=== PATIENT | male | born 1990 | race Caucasian/White ===

== ENCOUNTER 2022-06-21 15:46 | Observation (INO) | payer OTHER ==
[~2022-06-21] VITALS: Ht 180.3 cm; Wt 107.0 kg
[2022-06-21] MEDS ORDERED: ONDANSETRON HCL INJ 2MG/ML 2ML 2 MG/ML VIAL IV STA ×2 (16:06→19:49)
[2022-06-21] MEDS ORDERED: Morphine 4mg INJECTION 4 MG/ML INJ IV ONE ×2 (16:15→20:00)
[2022-06-21 16:23] LABS: BASOPHILS # (AUTO) 0.1 (0.0-0.1); BASOPHILS % 0.3 % (0.0-1.0); EOSINOPHILS # (AUTO) 0.2 (0.0-0.4); HEMATOCRIT 45.7 % (38.2-49.6); HEMOGLOBIN 15.2 g/dL (14.0-18.0); LYMPHOCYTES # (AUTO) 1.4 (1.0-3.2); LYMPHOCYTES % 9.1 % (18.0-39.1); MEAN CORPUSCULAR HEMOGLOBIN 31.5 pg (28-32); MEAN CORPUSCULAR HGB CONC 33.3 g/dL (31-35); MEAN CORPUSCULAR VOLUME 94.8 fL (81-99); MONOCYTES # (AUTO) 1.3 (0.2-0.8); MONOCYTES % 8.1 % (4.4-11.3); NEUTROPHILS # (AUTO) 12.7 (2.1-6.9); NEUTROPHILS % 81.2 % (38.7-80.0); PLATELET COUNT 309 x10e3/uL (140-360); RED BLOOD COUNT 4.82 x10e6/uL (4.3-5.7); RED CELL DISTRIBUTION WIDTH 12.2 % (11.7-14.4)
[2022-06-21 16:39] LABS: CLARITY,URINE SL CLOUDY (CLEAR); COLOR,URINE YELLOW (YELLOW); KETONES,URINE NEGATIVE (NEGATIVE); LEUKOCYTE ESTERASE ,URINE NEGATIVE (NEGATIVE); NITRITE,URINE NEGATIVE (NEGATIVE); PROTEIN,URINE DIPSTICK NEGATIVE (NEGATIVE); URINE UROBILINOGEN 0.2 mg/dL (0.2 - 1)
[2022-06-21 16:42] LABS: BACTERIA,URINE FEW /HPF; EPITHELIAL CELLS,URINE FEW /LPF; MUCUS,URINE MANY (RARE); WBC,URINE (MAN) 0-5 /HPF (0-5)
[2022-06-21 16:44] LABS: ALBUMIN 4.6 g/dL (3.5-5.0); ALBUMIN/GLOBULIN RATIO 1.2 (0.8-2.0); ANION GAP 15.1 mmol/L (8-16); CALCIUM 9.9 mg/dL (8.4-10.2); CREATININE, SERUM 1.19 mg/dL (0.72-1.25); POTASSIUM 4.1 mmol/L (3.5-5.1)
[2022-06-21] MEDS ORDERED: IOPAMIDOL 370 MG/ML 100 ML INFUS..BTL INJ ONE (17:09)
[2022-06-21] MEDS ORDERED: Vancomycin IV 1 GM in SODIUM CHLORIDE 0.9% 250ML 250 ML IV ONE (19:30)
[2022-06-21] MEDS ORDERED: METRONIDAZOLE 500MG/NS 100ML 100 ML IV ONE (19:30)
[2022-06-21] MEDS ORDERED: SODIUM CHLORIDE FLUSH 10 ML SYR INJ PRN (19:30)
[2022-06-21] MEDS ORDERED: DEXTROSE 5%/0.45% SOD CHL 1,000 ML IV ONE (19:45)
[2022-06-21] MEDS ORDERED: Vancomycin IV 1 GM VIAL ONE (19:52)
[2022-06-21] MEDS ORDERED: CEFEPIME HCL 1 GM VIAL ONE (19:52)
[2022-06-21] MEDS ORDERED: SODIUM CHLORIDE 0.9% 250ML 250 ML ONE (19:52)
[2022-06-21] MEDS ORDERED: Morphine 2mg Syringe 2 MG/ML SYR ONE (20:05)
[2022-06-21] MEDS ORDERED: ONDANSETRON HCL INJ 2MG/ML 2ML 2 MG/ML VIAL IV PRN (20:15)
[2022-06-21] MEDS ORDERED: PIPERACILLIN/TAZOBACTAM 3.375 GM VIAL ONE (20:27)
[2022-06-21 20:39] VITALS: BP 128/89
[2022-06-21 20:50] VITALS: BP 128/89
[2022-06-21 21:56] VITALS: BP 128/89
[2022-06-22] VITALS (7 sets, daily range): BP systolic 111–148; BP diastolic 67–89
[2022-06-22] MEDS: Morphine 4mg INJECTION 4 MG/ML INJ IV PRN ×2 (05:41→09:30)
[2022-06-22] MEDS ORDERED: BUPIVACAINE 0.25% 30ML SDV ONE (06:59)
[2022-06-22] MEDS ORDERED: FENTANYL CITRATE/PF 100MCG/2 ML INJ ONE ×2 (07:48→09:12)
[2022-06-22] MEDS ORDERED: MIDAZOLAM HCL 2 MG/2 ML VIAL ONE ×2 (07:48→08:48)
[2022-06-22] MEDS ORDERED: ACETAMINOPHEN 325 MG TAB PO PRN (08:30)
[2022-06-22] MEDS ORDERED: SODIUM CHLORIDE 0.9% 1000ML 1,000 ML IV SCH (08:30)
[2022-06-22] MEDS ORDERED: HYDROCODONE/APAP 5MG-325MG TAB PO PRN (08:30)
[2022-06-22] MEDS ORDERED: ONDANSETRON HCL INJ 2MG/ML 2ML 2 MG/ML VIAL IV PRN (08:30)
[2022-06-22] MEDS ORDERED: ONDANSETRON HCL INJ 2MG/ML 2ML 2 MG/ML VIAL ONE (09:12)
[2022-06-22] MEDS ORDERED: LIDOCAINE HCL 2% LOCAL INJ 5 ML SDV VIAL INJ ONE (16:42)
[2022-06-22] MEDS ORDERED: KETOROLAC TROMETHAMINE 30 MG/ML VIAL IV ONE (16:42)
[2022-06-22] MEDS ORDERED: GLYCOPYRROLATE INJ 0.2 MG/ML VIAL IV ONE (16:42)
[2022-06-22] MEDS ORDERED: METOCLOPRAMIDE HCL 10 MG/2ML VIAL IV ONE (16:42)
[2022-06-22] MEDS ORDERED: PROPOFOL IV EMULSION 10 MG/ML 20 ML VIAL IV ONE (16:42)
[2022-06-22] MEDS ORDERED: ROCURONIUM BROMIDE 10 MG/ML 5ML VIAL IV ONE (16:42)
[2022-06-22] MEDS ORDERED: NEOSTIGMINE 1 MG/ML 10ML VIAL IV ONE (16:42)
[2022-06-22] MEDS ORDERED: ONDANSETRON HCL INJ 2MG/ML 2ML 2 MG/ML VIAL IV ONE (16:42)
[2022-06-22] MEDS ORDERED: POVIDONE IODINE 0.05% 0.05 % ML PO ONE (16:42)
[2022-06-22] MEDS ORDERED: DEXAMETHASONE SOD PHOS INJ 4 MG/ML SDV IV ONE (16:42)
[2022-06-22] MEDS ORDERED: SEVOFLURANE INHAL SOLN 250 ML PEN BTL INH ONE (16:42)
== END 2022-06-22 16:43 | disposition home or self-care (01) ==
LOC: ER 16:19 → INTOOBSV 19:28 → ERHOLD 19:28 → MED/SURG 20:38
PROVIDERS: ADMIT Family Medicine; ATTEND Family Medicine
DX: K35.80 Unspecified acute appendicitis (principal); Z20.822 Contact with and (suspected) exposure to COVID-19; R73.03 Prediabetes; K08.409 Partial loss of teeth, unspecified cause, unspecified class
CPT/HCPCS: 36415; 44970; 74177; 80053; 81001; 83690; 85025; 88304; 94799; 99284; C1713; G0378 ×2; J0692; J1100; J1885; J2001; J2250; J2270 ×3; J2405 ×2; J2543 ×2; J2704; J2710; J2765; J3010; J3370; J7030; J7050; Q9967; U0002